=== PATIENT | male | born 1985 ===

== ENCOUNTER 2016-12-24 03:08 | Emergency (ER) | payer SELFPAY ==
--- NOTE | 2016-12-24 03:12 | C.PDOC ---
History Of Present Illness Patient was brought in to ER with [facility] after he was found inebriated on the floor. Patient reports he fell on the floor and hit his head; denies LOC, nausea , or vomiting. History Per: Patient History/Exam Limitations: no limitations Onset/Duration Of Symptoms: Hrs Current Symptoms Are (Timing): Still Present Suicide/Self Injury Attempted (Context): None Modifying Factor(s): Alcohol Severity: None Pain Scale Rating Of: 0 Associated Symptoms: denies: Depression, Suicidal Thoughts, Suicidal Plan Involuntary Hold By: None Recent travel outside of the [place]: No Additional History Per: Law Enforcement Past Medical History Reviewed: Historical Data, Nursing Documentation, Vital Signs Vital Signs: Last Vital Signs Temp 99 F 12/24/16 03:12 Pulse 97 H 12/24/16 03:12 Resp 16 12/24/16 03:12 BP 135/79 12/24/16 03:12 Pulse Ox 98 12/24/16 03:12 - Medical History PMH: No Chronic Diseases Surgical History: No Surg Hx Family History: States: No Known Family Hx Review Of Systems Constitutional: Negative for: Fever, Chills Gastrointestinal: Negative for: Nausea, Vomiting, Diarrhea Neurological: Negative for: Other (LOC) Physical Exam - Physical Exam Appears: Non-toxic, Other (ETOH on breath) Skin: Warm, Dry Head: Abrasion (2x3cm area to right forehead) Ear(s): Bilateral: Normal Nose: Normal, No Epistaxis, No Septal Hematoma Oral Mucosa: Moist Neck: Normal, Supple Chest: Symmetrical, No Tenderness Cardiovascular: Rhythm Regular, No Murmur Respiratory: No Rales, No Rhonchi, No Wheezing Gastrointestinal/Abdominal: Soft, No Tenderness Neurological/Psych: Oriented x3 ED Course And Treatment O2 Sat by Pulse Oximetry: 98 Pulse Ox Interpretation: Normal Progress Note: CT head and CT facials/orbits ordered. Reevaluation Time: 06:29 Reassessment Condition: Improved Disposition Counseled Patient/Family Regarding: Studies Performed, Diagnosis, Need For Followup - Disposition Referrals: [facility] [Outside] Disposition: HOME/ ROUTINE Disposition Time: 03:11 Condition: FAIR Instructions: Alcohol Intoxication (DC), Contusion in Adults (DC) - Clinical Impression Clinical Impression: Alcohol intoxication, Forehead contusion - Scribe Statement The provider has reviewed the documentation as recorded by the Scribe Alexx Gregory All medical record entries made by the Chapo were at my direction and personally dictated by me. I have reviewed the chart and agree that the record accurately reflects my personal performance of the history, physical exam, medical decision making, and the department course for this patient. I have also personally directed, reviewed, and agree with the discharge instructions and disposition.
[2016-12-24 03:16] VITALS: RESP 16
--- NOTE | 2016-12-24 04:27 | CT ---
EXAM: CT Head Without Intravenous Contrast EXAM DATE/TIME: 12/24/2016 3:12 AM CLINICAL HISTORY: 31 years old, male; Pain; Headache; Additional info: Fall TECHNIQUE: Axial computed tomography images of the head/brain without intravenous contrast. All CT scans at this facility use one or more dose reduction techniques, viz.: automated exposure control; ma/kV adjustment per patient size (including targeted exams where dose is matched to indication; i.e. head); or iterative reconstruction technique. COMPARISON: No relevant prior studies available. FINDINGS: There is subcutaneous soft tissue swelling in the right frontal region. No intracranial hemorrhage. No extra axial collections. No intracranial edema. No fluid in the sinuses or mastoid air cells. No depressed fractures. IMPRESSION: No acute intracranial injury.
--- NOTE | 2016-12-24 04:40 | CT ---
EXAM: CT Orbits Without Intravenous Contrast EXAM DATE/TIME: 12/24/2016 3:13 AM CLINICAL HISTORY: 31 years old, male; Pain; Face pain and headache and other: Forhead wound; Additional info: Fall TECHNIQUE: Axial computed tomography images of the orbits without intravenous contrast. All CT scans at this facility use one or more dose reduction techniques, viz.: automated exposure control; ma/kV adjustment per patient size (including targeted exams where dose is matched to indication; i.e. head); or iterative reconstruction technique. Coronal and sagittal reformatted images were created and reviewed. COMPARISON: No relevant prior studies available. FINDINGS: Subcutaneous soft tissue swelling right frontal region. No significant fluid within the sinuses. There is a small 2 x 3 mm hyperdensity, probable calcification, along the medial aspect of the superior left orbital globe without evidence of donor site. No fractures. IMPRESSION: No fractures.
[2016-12-24 06:30] VITALS: BP 115/77; PULSE 90; TEMP 98.9; O2SAT 98
== END 2016-12-24 06:38 | disposition home or self-care (01) ==
LOC: C.ER 03:08
DX: S00.83XA Contusion of other part of head, initial encounter (principal); W18.39XA Other fall on same level, initial encounter; Y92.89 Other specified places as the place of occurrence of the external cause; F10.120 Alcohol abuse with intoxication, uncomplicated; Y90.9 Presence of alcohol in blood, level not specified